=== PATIENT | female | born 1965 | race Caucasian/White ===

== ENCOUNTER 2021-02-17 10:44 | Emergency (ER) | payer OTHER ==
[~2021-02-17] VITALS: Ht 167.6 cm; Wt 69.8 kg
[2021-02-17 11:13] VITALS: BP 122/74
== END 2021-02-17 11:14 | disposition left against medical advice (07) ==
LOC: M.ERS 10:44
DX: U07.1 COVID-19 (principal); Z53.21 Procedure and treatment not carried out due to patient leaving prior to being seen by health care provider